=== PATIENT | female | born 1945 | race African-American/Black ===

== ENCOUNTER 2018-06-02 09:28 | Inpatient (IN) | payer MEDICARE ==
[~2018-06-02] VITALS: Ht 162.6 cm; Wt 66.7 kg
--- NOTE | 2018-06-02 09:45 | NUR ---
AAOX3, BIB SON REFERRED FOR PSYCH EVAL DUE TO PROBLEMS W/ SLEEPING. RR IS EVEN AND UNLABORED WITH NAD NOTED. SKIN IS WARM AND DRY. DR MOSLEY AT BS FOR EVAL. PATIENT IS CALM.
[2018-06-02] MEDS ORDERED: FERR325T23 PO (09:51)
[2018-06-02] MEDS ORDERED: OMEP40CA37 PO (09:51)
[2018-06-02] MEDS ORDERED: DOCU100C36 PO (09:51)
[2018-06-02] MEDS ORDERED: MELA3TAB PO (09:51)
[2018-06-02] MEDS ORDERED: PRAZ1CAP5 PO (09:51)
[2018-06-02] MEDS ORDERED: LORA1TAB PO (09:51)
[2018-06-02] MEDS ORDERED: CITA40TA22 PO (09:51)
[2018-06-02] MEDS ORDERED: QUET25TA PO (09:51)
[2018-06-02] MEDS ORDERED: TRAZ-182 PO (09:51)
--- NOTE | 2018-06-02 11:13 | NUR ---
REPORT GIVEN TO YANA ORTIZ FOR CONT OF CARE
--- NOTE | 2018-06-02 11:26 | NUR ---
REPORT GIVEN TO HUGO IN GPS FOR EMLO.
[2018-06-02 12:00] VITALS: BP 165/97
--- NOTE | 2018-06-02 12:00 | NUR ---
GPS ADMISSION NOTES Admitted a 72 years old female from ER due to psychosis, patient is alert and oriented x 3, verbally responsive and able to make needs known. On room air and tolerated well. Skin assessment done by charge nurse due to patient is female and no skin issues noted (skin intact). No complaint of pain or discomfort noted. Dr. Schroeder is aware of the admission and admission orders on file. Patient is ambulatory. Vital signs checked and recorded. Patient is on 5150 hold. Patient was given lunch. Kept patient clean and comfortable in bed. Will continue to monitor accordingly.
[2018-06-02] MEDS ORDERED: MAG HYDROX/AL HYDROX/SIMETH 30 ML UDC PO PRN (12:30)
[2018-06-02] MEDS ORDERED: MAGNESIUM HYDROXIDE 30 ML UDC PO PRN (12:30)
[2018-06-02] MEDS: DOCUSATE SODIUM LIQ 100 MG/10 ML UDC PO SCH (14:30)
[2018-06-02] MEDS: LORAZEPAM 0.5 MG TABLET PO PRN (14:30)
[2018-06-02 16:00] VITALS: BP 140/93
--- NOTE | 2018-06-02 19:25 | NUR ---
RN Notes Received pt in bed, awake, alert and oriented x3, calm and cooperative. On room air and tolerated well. Pt denies pain and any discomfort. Pt ambulates with steady gait noted. Will continue to monitor and maintain safety.
[2018-06-02 19:57] VITALS: BP 148/89
[2018-06-02] MEDS: PRAZOSIN HCL 1 MG CAPSULE PO SCH (21:02)
[2018-06-02] MEDS: MIRTAZAPINE 15 MG TABLET PO SCH (21:02)
[2018-06-02] MEDS ORDERED: Medication Not On Formulary EA (Melatonin 6 MG) PO SCH (22:00)
[2018-06-03 07:19] LABS: BASOPHILS % (AUTO) 0.4 % (0.0-2.0); EOSINOPHILS % (AUTO) 1.4 % (0.0-6.0); HEMATOCRIT 36 % (33-45); HEMOGLOBIN 12.1 g/dL (11.5-14.8); LYMPHOCYTES # (AUTO) 1.4 /CMM (0.8-4.8); LYMPHOCYTES % (AUTO) 23.3 % (20.0-44.0); MEAN CORPUSCULAR HEMOGLOBIN 29 PG (26.0-33.0); MEAN CORPUSCULAR HGB CONC 34 g/dl (31.0-36.0); MEAN CORPUSCULAR VOLUME 86 fL (82-100); MONOCYTES # (AUTO) 0.4 /CMM (0.1-1.30); MONOCYTES % (AUTO) 5.9 % (2.0-12.0); NEUTROPHILS # (AUTO) 4.2 /CMM (1.8-8.9); PLATELET COUNT (AUTO) 166 /CMM (150-450); RDW COEFFICIENT OF VARIATION 14.3 (11.5-15.0); RED BLOOD CELL COUNT(AUTO) 4.14 MIL/uL (4.0-5.2); WHITE BLOOD COUNT (AUTO) 6.2 K/uL (4.3-11.0)
[2018-06-03 07:30] LABS: CHOLESTEROL 157 mg/dL (<200); HDL CHOLESTEROL 65 mg/dL (40-60); LDL 80 mg/dL (0-99); TRIGLYCERIDES 33 mg/dL (30-150)
[2018-06-03 07:32] LABS: ALANINE AMINOTRANSFERASE 20 U/L (12-78); ALKALINE PHOSPHATASE 82 U/L (46-116); ASPARTATE AMINOTRANSFERASE 22 U/L (15-37); BILIRUBIN,TOTAL 0.5 mg/dL (0.2-1.0); CALCIUM, SERUM 8.5 mg/dL (8.5-10.1); CARBON DIOXIDE 30 mmol/L (21-32); CHLORIDE 106 mmol/L (98-107); CREATININE 0.7 mg/dL (0.6-1.3); GLUCOSE 94 mg/dL (74-106); POTASSIUM 3.6 mmol/L (3.5-5.1); SODIUM SERUM 142 mmol/L (136-145); TOTAL PROTEIN, SERUM 6.2 g/dL (6.4-8.2); UREA NITROGEN, BLOOD 16 mg/dL (7-18)
[2018-06-03 08:00] VITALS: BP 145/80
[2018-06-03] MEDS: DOCUSATE SODIUM LIQ 100 MG/10 ML UDC PO SCH (08:23)
[2018-06-03] MEDS: FERROUS SULFATE (325 MG) 325 MG/TAB TABLET PO SCH (08:23)
[2018-06-03] MEDS: LORAZEPAM 0.5 MG TABLET PO PRN ×2 (08:23→18:15)
[2018-06-03] MEDS: PANTOPRAZOLE 40 MG TABLET.DR PO SCH (08:23)
[2018-06-03 16:51] VITALS: BP 165/90
--- NOTE | 2018-06-03 19:20 | NUR ---
RN NOTES RECEIVED PT WALKING AROUND UNIT. NO APPARENT S/S OF DISTRESS AT THIS TIME. WILL CONTINUE TO MONITOR FOR PATIENT SAFETY.
[2018-06-03 20:24] VITALS: BP 136/70
[2018-06-03] MEDS: RIVASTIGMINE TARTRATE 1.5 MG CAPSULE PO SCH (20:46)
[2018-06-03] MEDS: risperiDONE 0.25 MG TABLET PO SCH (20:46)
[2018-06-03] MEDS: PRAZOSIN HCL 1 MG CAPSULE PO SCH (22:08)
[2018-06-03] MEDS: MIRTAZAPINE 15 MG TABLET PO SCH (22:08)
[2018-06-03] MEDS: TEMAZEPAM 7.5 MG CAPSULE PO PRN (22:09)
[2018-06-04 08:00] VITALS: BP 149/86
[2018-06-04] MEDS: risperiDONE 0.25 MG TABLET PO SCH ×2 (08:46→17:26)
[2018-06-04] MEDS: FERROUS SULFATE (325 MG) 325 MG/TAB TABLET PO SCH (08:46)
[2018-06-04] MEDS: PANTOPRAZOLE 40 MG TABLET.DR PO SCH (08:46)
[2018-06-04] MEDS: LORAZEPAM 0.5 MG TABLET PO PRN ×2 (08:46→15:47)
[2018-06-04] MEDS: RIVASTIGMINE TARTRATE 1.5 MG CAPSULE PO SCH ×2 (08:46→17:26)
[2018-06-04] MEDS: DOCUSATE SODIUM LIQ 100 MG/10 ML UDC PO SCH (08:46)
--- NOTE | 2018-06-04 11:48 | NUR ---
Initial Discharge Note: Pt currently resides in a home with her son and liquid natural gas plant operator, Mahesh Zamora ([phone]) at the address [address] [place] [address]. Per pt, she would like to go to a snf facility and then go back home to her son. SW will work with the pt and the MD regarding appropriate discharge planning. SW will form a safe and proper discharge.
--- NOTE | 2018-06-04 15:00 | NUR ---
RN NOTE: ROOMMATE OF PATIENT RETREIVED ME FROM THE NURSING STATION. ENTERING THE ROOM, I SEE THE PATIENT ON HER KNEES AND HANDS. SHE STATES THAT SHE FELL. SHE REPORTS NO PAIN. I ASSESSED FOR ANY DAMAGE. RETREIVED VITALS: 163/97, 93, 98.5, 18, 99 ON RA. PATIENT STATE SHE DOES NOT KNOW IF SHE FELL BECAUSE OF DIZZINESS OR HER LEGS GAVE OUT. CALLED AND NOTIFIED PHYSICIAN, MASTER TECHNICIAN, AND FAMILY MEMBER. INCIDENT REPORT WILL BE COMPLETED AFTER THIS DOCUMENTATION.
[2018-06-04 16:00] VITALS: BP 164/97
--- NOTE | 2018-06-04 19:30 | NUR ---
GPS RN OPENING NOTE: RECEIVED PT AND IS ON ROOM AND TOLERATING WELL. INFORMED PT TO STAY IN BED ENDORSED SHE HAD A FALL TODAY. PT VERY ANXIOUS AND VERBALIZING SHE HASN'T SLEPT AND WANTS TO GO TO SLEEP. NO SOB NOTED. PT DENIES SUICIDE IDEATIONS OR HOMICIDAL IDEATIONS AT THIS TIME. INSTRUCTED PT TO USE CALL BED WHEN PRN. BED KEPT IN LOW, LOCKED POSITION, AND SIDE RAILS X 2UP. WILL CONTINUE TO MONITOR PT.
[2018-06-04 20:00] VITALS: BP 158/82
[2018-06-04 20:11] VITALS: BP 136/70
[2018-06-04] MEDS: PRAZOSIN HCL 1 MG CAPSULE PO SCH (21:03)
[2018-06-04] MEDS: MIRTAZAPINE 15 MG TABLET PO SCH (21:04)
[2018-06-04] MEDS: TEMAZEPAM 7.5 MG CAPSULE PO PRN (22:00)
[2018-06-05] MEDS: LORAZEPAM 0.5 MG TABLET PO PRN ×3 (04:10→17:00)
--- NOTE | 2018-06-05 04:12 | NUR ---
GPS RN NOTE: PT VERY RESTLESS. PT KEEPS GETTING OUT OF BED AND VERBALIZING THAT SHE NEEDS SOMETHING TO RELAX HER. PT WAS ADMINISTERED ATIVAN 1MG PO. WILL CONTINUE TO MONITOR PT.
--- NOTE | 2018-06-05 06:46 | NUR ---
GPS RN CLOSING NOTE: ALL NEEDS WERE ATTENDED AND ANTICIPATED FOR. PT STILL APPEARS TO BE ANXIOUS BUT IS RESTING IN BED AT THIS TIME. NO SOB NOTED. CALL MACE WITHIN PT'S REACH. BED KEPT IN LOW, LOCKED POSITION, AND SIDE RAILS X 2UP. WILL ENDORSE TO AM NURSE FOR ELMO.
--- NOTE | 2018-06-05 08:00 | NUR ---
GPS RN AM NOTE: RECEIVED PT AMBULATING IN AND OUT OF THE ROOM AND TOLERATING WELL. FREQUENTLY REMINDED PT TO USE FWW WITH AMBULATION ENDORSED SHE HAD A FALL YESTERDAY AM. PT IS ANXIOUS.NO SOB NOTED. PT DENIES SUICIDE IDEATIONS OR HOMICIDAL IDEATIONS AT THIS TIME. INSTRUCTED PT TO USE CALL BED WHEN PRN. BED KEPT IN LOW, LOCKED POSITION, AND SIDE RAILS X 2UP. WILL CONTINUE TO MONITOR PT.
[2018-06-05 08:26] VITALS: BP 160/80
[2018-06-05] MEDS: RIVASTIGMINE TARTRATE 1.5 MG CAPSULE PO SCH ×2 (08:45→17:00)
[2018-06-05] MEDS: ACETAMINOPHEN 325 MG TABLET PO PRN ×2 (08:45→17:00)
[2018-06-05] MEDS: risperiDONE 0.25 MG TABLET PO SCH ×2 (08:46→17:00)
[2018-06-05] MEDS: FERROUS SULFATE (325 MG) 325 MG/TAB TABLET PO SCH (08:46)
[2018-06-05] MEDS: DOCUSATE SODIUM LIQ 100 MG/10 ML UDC PO SCH (08:47)
[2018-06-05] MEDS: PANTOPRAZOLE 40 MG TABLET.DR PO SCH (08:47)
--- NOTE | 2018-06-05 16:14 | NUR ---
NOTIFIED DR MAIER OF PT'S HIGH BP OF 165/96 HR 77 WITH NO NEW ORDER AND JUST TO MONITOR.
[2018-06-05 16:29] VITALS: BP 165/96
--- NOTE | 2018-06-05 16:30 | NUR ---
PT KEEPS C/O MILD HEADACHE BUT REFUSES TO TAKE TYLENOL INSPITE OF EXPLAINING THE RISKS AND BENEFITS OF TYLENOL.ALSO DISCUSSED WITH PT THE REASON WHY HER BP WAS HIGH 165/96 DUE TO HER HEADACHE.PT WAS SO ANXIOUS AND OFFERED LORAZEPAM WELL.PT INSISTS TO REFUSED TYLENOL.
[2018-06-05 18:51] VITALS: BP 158/88
[2018-06-05 20:00] VITALS: BP 154/87
[2018-06-05] MEDS: MIRTAZAPINE 15 MG TABLET PO SCH (21:46)
[2018-06-05] MEDS: PRAZOSIN HCL 1 MG CAPSULE PO SCH (21:46)
[2018-06-05] MEDS: TEMAZEPAM 7.5 MG CAPSULE PO PRN (21:47)
[2018-06-06 08:00] VITALS: BP 159/92
[2018-06-06] MEDS: PANTOPRAZOLE 40 MG TABLET.DR PO SCH (08:51)
[2018-06-06] MEDS: FERROUS SULFATE (325 MG) 325 MG/TAB TABLET PO SCH (08:51)
[2018-06-06] MEDS: risperiDONE 0.25 MG TABLET PO SCH ×2 (08:51→16:34)
[2018-06-06] MEDS: RIVASTIGMINE TARTRATE 1.5 MG CAPSULE PO SCH ×2 (08:51→16:34)
[2018-06-06] MEDS: DOCUSATE SODIUM LIQ 100 MG/10 ML UDC PO SCH (08:51)
[2018-06-06] MEDS: LORAZEPAM 0.5 MG TABLET PO PRN ×3 (08:57→23:26)
[2018-06-06 16:00] VITALS: BP 160/95
[2018-06-06 20:00] VITALS: BP 153/106
[2018-06-06] MEDS: PRAZOSIN HCL 1 MG CAPSULE PO SCH (21:51)
[2018-06-06] MEDS: TEMAZEPAM 7.5 MG CAPSULE PO PRN (21:51)
[2018-06-06] MEDS: MIRTAZAPINE 15 MG TABLET PO SCH (21:51)
[2018-06-07] MEDS: LORAZEPAM 0.5 MG TABLET PO PRN ×2 (05:33→20:49)
[2018-06-07 08:00] VITALS: BP 131/89
[2018-06-07] MEDS: DOCUSATE SODIUM LIQ 100 MG/10 ML UDC PO SCH (09:29)
[2018-06-07] MEDS: clonazePAM 0.5 MG TABLET PO SCH ×2 (09:29→17:50)
[2018-06-07] MEDS: RIVASTIGMINE TARTRATE 1.5 MG CAPSULE PO SCH ×2 (09:29→17:50)
[2018-06-07] MEDS: FERROUS SULFATE (325 MG) 325 MG/TAB TABLET PO SCH (09:30)
[2018-06-07] MEDS: HYDROCHLOROTHIAZIDE 25 MG TABLET PO SCH (09:30)
[2018-06-07] MEDS: risperiDONE 0.25 MG TABLET PO SCH ×2 (09:30→17:50)
[2018-06-07] MEDS: PANTOPRAZOLE 40 MG TABLET.DR PO SCH (09:30)
[2018-06-07 16:00] VITALS: BP 160/99
--- NOTE | 2018-06-07 18:52 | NUR ---
GPS/RN PT REFUSED CLONOPIN SCHEDULED FOR 1700. OFFRED X3. MEDICATION WAS WASTED
--- NOTE | 2018-06-07 19:55 | NUR ---
GPS/RN OPENING NOTES RECEIVED PATIENT IN BED, AWAKE, ALERT, AMBULATES WITH SUPERVISION, ASSISTED TO BATHROOM, MONITORING FOR CHANGES, PATIENT REQUEST TO KEEP WARM, PROVIDED,, BED IN LOCK POSITION.
[2018-06-07] MEDS: PRAZOSIN HCL 1 MG CAPSULE PO SCH (20:18)
[2018-06-07] MEDS: MIRTAZAPINE 15 MG TABLET PO SCH (20:18)
[2018-06-07 23:46] VITALS: BP 161/102
[2018-06-08 08:00] VITALS: BP 142/79
[2018-06-08] MEDS: RIVASTIGMINE TARTRATE 1.5 MG CAPSULE PO SCH ×2 (08:21→16:21)
[2018-06-08] MEDS: DOCUSATE SODIUM LIQ 100 MG/10 ML UDC PO SCH (08:21)
[2018-06-08] MEDS: risperiDONE 0.25 MG TABLET PO SCH ×2 (08:21→16:21)
[2018-06-08] MEDS: HYDROCHLOROTHIAZIDE 25 MG TABLET PO SCH (08:22)
[2018-06-08] MEDS: PANTOPRAZOLE 40 MG TABLET.DR PO SCH (08:22)
[2018-06-08] MEDS: FERROUS SULFATE (325 MG) 325 MG/TAB TABLET PO SCH (08:22)
[2018-06-08] MEDS: clonazePAM 0.5 MG TABLET PO SCH ×2 (08:22→16:22)
[2018-06-08] MEDS: LORAZEPAM 0.5 MG TABLET PO PRN ×2 (11:53→20:15)
--- NOTE | 2018-06-08 11:57 | NUR ---
GPS/RN PATIENT IS ANXIOUS AND RESTLESS, ADMINISTERED ATIVAN 1 MG PER PATIENT REQUEST.
[2018-06-08 16:00] VITALS: BP 138/80
--- NOTE | 2018-06-08 19:30 | NUR ---
GPS RN INITIAL NOTE PT RECEIVED LAYING IN BED. A/O X1-2 WITH NOTED ANXIETY AND RESTLESSNESS. NO ACUTE DISTRESS NOTED. WILL CONTINUE TO MONITOR.
[2018-06-08 20:05] VITALS: BP 167/103
--- NOTE | 2018-06-08 20:39 | NUR ---
RN NOTE GAVE ATIVAN 1MG PER PT REQUEST.
[2018-06-08] MEDS: TEMAZEPAM 7.5 MG CAPSULE PO PRN (21:38)
[2018-06-08] MEDS: PRAZOSIN HCL 1 MG CAPSULE PO SCH (21:39)
[2018-06-08] MEDS: MIRTAZAPINE 15 MG TABLET PO SCH (21:42)
[2018-06-09] MEDS: LORAZEPAM 0.5 MG TABLET PO PRN ×2 (06:59→13:18)
[2018-06-09 08:00] VITALS: BP 141/86
[2018-06-09] MEDS: DOCUSATE SODIUM LIQ 100 MG/10 ML UDC PO SCH (08:11)
[2018-06-09] MEDS: RIVASTIGMINE TARTRATE 1.5 MG CAPSULE PO SCH ×2 (08:12→16:21)
[2018-06-09] MEDS: FERROUS SULFATE (325 MG) 325 MG/TAB TABLET PO SCH (08:12)
[2018-06-09] MEDS: PANTOPRAZOLE 40 MG TABLET.DR PO SCH (08:13)
[2018-06-09] MEDS: HYDROCHLOROTHIAZIDE 25 MG TABLET PO SCH (08:14)
[2018-06-09] MEDS: risperiDONE 0.25 MG TABLET PO SCH ×2 (08:14→16:21)
[2018-06-09] MEDS: clonazePAM 0.5 MG TABLET PO SCH ×2 (08:15→17:46)
--- NOTE | 2018-06-09 09:30 | NUR ---
KHRIS called the pt's son and waste recycler, Mahesh Zamora ([phone]), and informed him that a group home facility is the recommended plan for treatment as of right now. The son stated that he agrees and that he would want her to return to his home and under his care after being treated at a group home facility.
--- NOTE | 2018-06-09 09:34 | NUR ---
KHRIS sent a referral to [facility] and received word from Yuliana ([phone]) stating that the pt was accepted to the facility.
--- NOTE | 2018-06-09 09:35 | NUR ---
KHRIS called the pt's son and research program assistant, Mahesh Zamora ([phone]), and informed him that [facility] accepted the pt. The son stated that he would go visit the facility before making a decision about sending the pt there.
--- NOTE | 2018-06-09 13:19 | NUR ---
GPS RN NOTE: PT FEELING ANXIOUS REQUEST ATIVAN,GAVE ATIVAN 1MG PER PT ORDER
[2018-06-09 16:00] VITALS: BP 133/89
[2018-06-09 20:56] VITALS: BP 156/66
[2018-06-09] MEDS: PRAZOSIN HCL 1 MG CAPSULE PO SCH (21:37)
[2018-06-09] MEDS: MIRTAZAPINE 15 MG TABLET PO SCH (21:37)
[2018-06-09] MEDS: TEMAZEPAM 7.5 MG CAPSULE PO PRN (21:38)
--- NOTE | 2018-06-09 21:40 | NUR ---
GPS RN NOTE PT ASKING FOR SLEEPING MED. RESTORIL 15 MG PO GIVEN.
--- NOTE | 2018-06-09 22:40 | NUR ---
GPS RN NOTE PT FALL ASLEEP, NO DISTRESS NOTED.
[2018-06-10] MEDS: PANTOPRAZOLE 40 MG TABLET.DR PO SCH ×3 (07:30→10:53)
[2018-06-10 08:00] VITALS: BP 121/73
[2018-06-10] MEDS: DOCUSATE SODIUM LIQ 100 MG/10 ML UDC PO SCH ×3 (08:48→10:51)
[2018-06-10] MEDS: RIVASTIGMINE TARTRATE 1.5 MG CAPSULE PO SCH ×4 (08:52→16:06)
[2018-06-10] MEDS: FERROUS SULFATE (325 MG) 325 MG/TAB TABLET PO SCH ×3 (08:52→10:51)
[2018-06-10] MEDS: HYDROCHLOROTHIAZIDE 25 MG TABLET PO SCH ×3 (08:52→10:52)
[2018-06-10] MEDS: risperiDONE 0.25 MG TABLET PO SCH ×4 (08:53→16:05)
[2018-06-10] MEDS: clonazePAM 0.5 MG TABLET PO SCH ×2 (08:53→16:06)
--- NOTE | 2018-06-10 11:00 | NUR ---
GPS RN NOTE: PATIENT REFUSED MORNING MEDICATIONS STATING" I DONT WANT TO TAKE THEM" ALL MEDICATIONS WAS WASTED , LATER PT REQUEST ALL MORNING MEDICATIONS THAT WAS GIVEN TO HER. PT FEELING DISORGANIZED AT THIS TIME AND CONFUSED WILL NOTIFIED MD AND CONTINUE MONITORING.
[2018-06-10] MEDS: LORAZEPAM 0.5 MG TABLET PO PRN ×2 (15:14→21:12)
--- NOTE | 2018-06-10 15:17 | NUR ---
GPS RN NOTE: PT FEELING ANXIOUS REQUEST ATIVAN,GAVE ATIVAN 1MG PER PT ORDER
[2018-06-10 16:00] VITALS: BP 134/91
--- NOTE | 2018-06-10 19:31 | NUR ---
GPS RN NOTES RECEIVED PT ON BED, A/OX3 ON A WALKER . NO RESPIRATORY DISTRESS NOTED. BREATHING EVEN AND UNLABORED. NO COMPLAINTS OF PAIN. BED IN LOW AND LOCKED POSITION. BED ALARM ON. WILL CONTINUE TO MONITOR PT F34MCIL CHECKED BEHAVIOR AND SAFETY.
[2018-06-10 20:36] VITALS: BP 119/85
[2018-06-10] MEDS: TEMAZEPAM 7.5 MG CAPSULE PO PRN (21:11)
[2018-06-10] MEDS: MIRTAZAPINE 15 MG TABLET PO SCH (21:12)
[2018-06-10] MEDS: PRAZOSIN HCL 1 MG CAPSULE PO SCH (21:13)
[2018-06-11] MEDS: LORAZEPAM 0.5 MG TABLET PO PRN ×2 (03:14→09:49)
--- NOTE | 2018-06-11 03:15 | NUR ---
GPS RN NOTES ATIVAN GIVEN PER PT REQUEST.
[2018-06-11 08:00] VITALS: BP 158/80
[2018-06-11] MEDS: DOCUSATE SODIUM LIQ 100 MG/10 ML UDC PO SCH (08:14)
[2018-06-11] MEDS: PANTOPRAZOLE 40 MG TABLET.DR PO SCH (08:14)
[2018-06-11 08:16] VITALS: BP 158/80
[2018-06-11] MEDS: HYDROCHLOROTHIAZIDE 25 MG TABLET PO SCH (08:16)
[2018-06-11] MEDS: clonazePAM 0.5 MG TABLET PO SCH (08:17)
[2018-06-11] MEDS: FERROUS SULFATE (325 MG) 325 MG/TAB TABLET PO SCH (08:18)
[2018-06-11] MEDS: RIVASTIGMINE TARTRATE 1.5 MG CAPSULE PO SCH (08:18)
[2018-06-11] MEDS: risperiDONE 0.25 MG TABLET PO SCH (09:07)
--- NOTE | 2018-06-11 09:35 | NUR ---
KHRIS called the pt's son and missile facilities repairer, Mahesh Zamora ([phone]) and informed him that the pt will be discharged today to [facility]. He stated that he was going to visit her today before she leaves and then he is going to visit her at the facility the following day.
--- NOTE | 2018-06-11 13:17 | NUR ---
KHRIS met with the pt's son and cooker sulfate, Mahesh Zamora ([phone]), and discussed the pt's discharge plan and current state.
--- NOTE | 2018-06-11 15:00 | NUR ---
DISCHARGE GPS PT. WAS DISCHARGED TO [facility] IN STABLE CONDITION BY AMBULANCE. REPORT WAS GIVEN VIA PHONE TO NURSE AUGIE. PT. IS A&OX3-4. DISCHARGE INSTRUCTIONS WERE GIVEN WITH EDUCATION AND PT. VERBALIZED UNDERSTANDING. BELONGINGS LIST WAS CHECKED AND SIGNED. PRESCRIPTION WAS GIVEN TO PT. WITH EDUCATION AND PT. VERBALIZED UNDERSTANDING. REPORT WAS GIVEN TO AMBULANCE, WITH DISCHARGE PACKET. PT.'S SON IS AWARE OF PT. LEAVING TO [facility] TODAY. PT.'S MEDICATIONS, AND BELONGINGS WERE TAKEN BY AMBULANCE.
--- NOTE | 2018-06-11 15:45 | NUR ---
Discharge Note: Pt was discharged to [facility] ([facility] located at [address] [place] [address] ([phone]). Pt was transported via [facility] (Trip #[id number]) at 2PM. Pts son, Mahesh Zamora ([phone]), was contacted about this discharge and he approved it. Upon discharge, the pt presented as anxious and needed prompting about being taken care of at the next facility. Pt denied both suicidal and homicidal ideation as well as auditory and visual hallucinations. Pt will be under the care of psychiatrist, Dr. Markham, located at [address] [address], [place] [address]; and radius corner machine operator, Dr. Hazel, located at [address] [address], [place] [address]; .
== END 2018-06-11 15:00 | DRG 881 ==
LOC: ER 09:32 → GPS 11:19
PROVIDERS: ADMIT Psychiatry & Neurology Psychiatry; ATTEND Internal Medicine
DX: F32.9 Major depressive disorder, single episode, unspecified (principal); F02.80 Dementia in other diseases classified elsewhere, unspecified severity, without behavioral disturbance, psychotic disturbance, mood disturbance, and anxiety; E44.1 Mild protein-calorie malnutrition; I10 Essential (primary) hypertension; F43.10 Post-traumatic stress disorder, unspecified; G47.00 Insomnia, unspecified; F29 Unspecified psychosis not due to a substance or known physiological condition; Z73.6 Limitation of activities due to disability; E88.09 Other disorders of plasma-protein metabolism, not elsewhere classified; Z68.25 Body mass index [BMI] 25.0-25.9, adult; F03.90 Unspecified dementia, unspecified severity, without behavioral disturbance, psychotic disturbance, mood disturbance, and anxiety
CPT/HCPCS: 36415; 80053-TC; 80061-TC; 85025-TC; 87081-TC; A4606; Z7610